=== PATIENT | male | born 1930 | race Caucasian/White ===

== ENCOUNTER 2018-02-02 12:53 | Outpatient (CLI) | payer MEDICARE | END 2018-02-02 12:54 | disposition home or self-care (01) | LOC: BICCT 12:53 → EDSEX 14:00 | PROVIDERS: ATTEND Thoracic Surgery (Cardiothoracic Vascular Surgery) | DX: I72.3 Aneurysm of iliac artery (principal); R93.8 Abnormal findings on diagnostic imaging of other specified body structures; K63.89 Other specified diseases of intestine; K62.89 Other specified diseases of anus and rectum | CPT/HCPCS: 74176 ==